=== PATIENT | female | born 1975 | race Caucasian/White ===

== ENCOUNTER 2022-01-08 14:25 | Outpatient (CLI) | payer BC | END 2022-01-08 14:26 | disposition home or self-care (01) | LOC: CSHULT 14:25 | PROVIDERS: ATTEND Nurse Practitioner Family | DX: N92.0 Excessive and frequent menstruation with regular cycle (principal); E66.9 Obesity, unspecified; N63.20 Unspecified lump in the left breast, unspecified quadrant; N85.2 Hypertrophy of uterus | CPT/HCPCS: 76856 ==

== ENCOUNTER 2022-02-25 13:39 | Emergency (ER) | payer BC, SELFPAY | END 2022-02-25 17:20 | disposition home or self-care (01) | LOC: CSHERS 13:39 | DX: R25.2 Cramp and spasm (principal) ==

== ENCOUNTER 2022-06-07 10:47 | Emergency (ER) | payer BC, SELFPAY ==
[2022-06-07] MEDS ORDERED: Ibuprofen 200 MG TAB ONE (11:31)
== END 2022-06-07 12:52 | disposition home or self-care (01) ==
LOC: CSHERS 10:47
DX: S60.222A Contusion of left hand, initial encounter (principal); W18.09XA Striking against other object with subsequent fall, initial encounter

== ENCOUNTER 2022-07-10 13:35 | Emergency (ER) | payer BC ==
[2022-07-10 14:22] LABS: #Eosinphils 0.2 10x3/uL (0.0-0.5); #Monocytes 0.3 10x3/uL (0.0-1.1); #Neutrophils 5.2 10x3/uL (1.5-8.4); %Basophils 0.5 % (0.0-2.0); %Eosinophils 2.6 % (0.0-6.0); %Lymphocytes 21.2 % (18.0-47.0); %Monocytes 4.4 % (0.0-10.0); Hemoglobin 12.9 g/dL (12.0-15.5); Mean Corpuscular HGB CONC 34.7 g/dL (32.0-36.0); Mean Corpuscular Hemoglobin 29.8 pg (27.0-33.0); Mean Corpuscular Volume 85.9 fl (81.6-98.3); Mean Platelet Volume 9.2 fl (7.4-10.4); Platelet Count 342 10x3/uL (150-450); RBC Distribution Width 12.2 % (11.5-14.5); Red Blood Cell (RBC) Count 4.33 10x6/uL (3.90-5.03); White Blood Cell (WBC) Count 7.3 10x3/uL (3.5-10.5)
[2022-07-10] MEDS ORDERED: Iopamidol 300 61% 100 ML VIAL FS ONE (14:22)
[2022-07-10 14:28] LABS: BHCG - Serum Negative (NEGATIVE); Pregs Control Background? CLEAR/WHITE (CLR/WHITE); Pregs Control Bar Appear? YES (CONTROL BAR)
[2022-07-10 14:34] LABS: ALT (SGPT) 15 U/L (8-55); AST (SGOT) 20 U/L (5-34); Albumin 4.2 g/dL (3.5-5.0); Alkaline Phosphatase 53 U/L (40-110); Anion Gap 12 mmol/L (10-20); BUN (Urea Nitrogen) 16 mg/dL (7.0-18.7); Bilirubin, Total 0.5 mg/dL (0.2-1.2); Calc. Creatinine Clearance 0 mL/min (70-130); Calcium 9.5 mg/dL (7.8-10.44); Carbon Dioxide 24 mmol/L (22-29); Chloride 106 mmol/L (98-107); Estimated GFR 67; Globulin 2.9 g/dL (2.4-3.5); Glucose 99 mg/dL (70-105); Lipase 41 U/L (8-78); Potassium 3.9 mmol/L (3.5-5.1); Protein, Total 7.1 g/dL (6.0-8.3); Sodium 138 mmol/L (136-145)
[2022-07-10] MEDS ORDERED: Ketorolac Tromethamine 30 MG/ML VIAL ONE (15:04)
[2022-07-10 15:32] LABS: Bilirubin Neg (Negative); Blood, Urine 150 (Negative); Clarity Clear (Clear); Glucose, Urine (Dipstick) Normal (Negative); Ketone, Urine Negative (Negative); Leukocyte Negative (Negative); Nitrite Negative (Negative); Protein, Urine (Dipstick) Negative (Neg-Trace); Urobilinogen Normal mg/dL (Less than 2)
[2022-07-10 15:41] LABS: Bacteria/HPF None Seen HPF (None Seen); Mucous/LPF Rare LPF (<2+); Squamous Epithelial 0-3 HPF (0-3); WBC/HPF 0-3 HPF (0-3)
== END 2022-07-10 17:42 | disposition home or self-care (01) ==
LOC: CSHERS 13:35
DX: R10.31 Right lower quadrant pain (principal); J45.909 Unspecified asthma, uncomplicated
CPT/HCPCS: 74177; 76856; 80053; 81003; 81015; 83690; 84703; 85025; 93976; 96374; J1885; Q9967

== ENCOUNTER 2023-05-26 18:01 | Emergency (ER) | payer BC | END 2023-05-26 21:05 | disposition home or self-care (01) | LOC: CSHERS 18:01 | DX: S63.91XA Sprain of unspecified part of right wrist and hand, initial encounter (principal); S00.03XA Contusion of scalp, initial encounter; J45.909 Unspecified asthma, uncomplicated; W19.XXXA Unspecified fall, initial encounter | CPT/HCPCS: 70450 ==

== ENCOUNTER 2023-08-07 19:08 | Emergency (ER) | payer BC ==
[2023-08-07] MEDS ORDERED: predniSONE 20 MG TAB ONE (19:59)
[2023-08-07] MEDS ORDERED: LevoFLOXacin 750 MG TAB ONE (19:59)
[2023-08-07 20:18] LABS: SARS-CoV-2 NAA Rapid Test Not Detected (NotDetected)
== END 2023-08-07 20:06 | disposition home or self-care (01) ==
LOC: CSHERS 19:08
DX: J21.0 Acute bronchiolitis due to respiratory syncytial virus (principal); Z20.822 Contact with and (suspected) exposure to COVID-19
CPT/HCPCS: 93005; 93010; 99283; J7512

== ENCOUNTER 2023-08-10 12:49 | Emergency (ER) | payer BC ==
[2023-08-10] MEDS ORDERED: HYDROcodone/Acetaminophen 5/325 mg Tablet ONE (14:04)
== END 2023-08-10 14:26 | disposition home or self-care (01) ==
LOC: CSHERS 12:49
DX: S40.012A Contusion of left shoulder, initial encounter (principal); J45.909 Unspecified asthma, uncomplicated; Z79.899 Other long term (current) drug therapy; W18.39XA Other fall on same level, initial encounter

== ENCOUNTER 2023-08-17 16:33 | Outpatient (CLI) | payer BC | END 2023-08-17 16:34 | disposition home or self-care (01) | LOC: CSHLAB 16:33 | PROVIDERS: ATTEND Student in an Organized Health Care Education/Training Program | DX: Z01.812 Encounter for preprocedural laboratory examination (principal); N92.1 Excessive and frequent menstruation with irregular cycle | CPT/HCPCS: 84703; 85027; 86850; 86900; 86901 ==

== ENCOUNTER 2023-08-19 05:38 | Day surgery (SDC) | payer BC ==
[2023-08-17 17:52] LABS: Hematocrit 41.7 % (34.9-44.5); Hemoglobin 13.8 g/dL (12.0-15.5); Mean Corpuscular HGB CONC 33.1 g/dL (32.0-36.0); Mean Corpuscular Volume 84.8 fl (81.6-98.3); Platelet Count 332 10x3/uL (150-450); RBC Distribution Width 14.1 % (11.5-14.5); Red Blood Cell (RBC) Count 4.92 10x6/uL (3.90-5.03); White Blood Cell (WBC) Count 9.7 10x3/uL (3.5-10.5)
[2023-08-17 18:02] LABS: BHCG - Serum Negative (NEGATIVE); Pregs Control Background? CLEAR/WHITE (CLR/WHITE); Pregs Control Bar Appear? YES (CONTROL BAR)
[2023-08-19] MEDS ORDERED: EPINEPHrine 1 MG/ML VIAL ONE (06:24)
[2023-08-19] MEDS ORDERED: Bupivacaine PF 0.5% 30 ML VIAL ONE (06:25)
[2023-08-19] MEDS ORDERED: Gabapentin 300 MG CAP ONE (06:27)
[2023-08-19] MEDS ORDERED: CeleCOXIB 100 MG CAP ONE (06:27)
[2023-08-19] MEDS ORDERED: Famotidine/PF 20 mg/2ml Vial ONE (06:28)
[2023-08-19] MEDS ORDERED: Rocuronium Bromide 10 MG/ML (10ML VIAL) ONE (06:36)
[2023-08-19] MEDS ORDERED: Ondansetron PF 4 MG/2 ML Vial ONE ×2 (06:36→11:28)
[2023-08-19] MEDS ORDERED: Lidocaine 1% PF 5 ML VIAL ONE (06:36)
[2023-08-19] MEDS ORDERED: PROPOFOL 20 ML ONE ×2 (06:36→08:02)
[2023-08-19] MEDS ORDERED: Dexamethasone 20 MG/5 ML VIAL ONE (06:36)
[2023-08-19] MEDS ORDERED: Midazolam HCl 2 mg/2 ml Vial ONE (06:37)
[2023-08-19] MEDS ORDERED: Fentanyl 250 MCG/5 ML VIAL ONE (06:37)
[2023-08-19] MEDS ORDERED: Sevoflurane 250 ML INH ANEST BOTTLE ONE (06:41)
[2023-08-19] MEDS ORDERED: Scopolamine 1 mg/72 hour Patch ONE (06:54)
[2023-08-19] MEDS ORDERED: CEFAZOLIN 2 GM VIAL ONE (07:19)
[2023-08-19] MEDS ORDERED: PHENYLEPHRINE-NS 100 MCG/ML 10 ML SYRINGE ONE (07:44)
[2023-08-19] MEDS ORDERED: HYDROcodone/Acetaminophen 5/325 mg Tablet ONE (10:59)
== END 2023-08-19 13:15 | disposition home or self-care (01) ==
LOC: CSHSDC 05:38
PROVIDERS: ATTEND Student in an Organized Health Care Education/Training Program
PROC: 0UT94ZZ Resection of Uterus, Percutaneous Endoscopic Approach (ICD-10-PCS; principal; 2023-08-19)
PROC: 0UT74ZZ Resection of Bilateral Fallopian Tubes, Percutaneous Endoscopic Approach (ICD-10-PCS; principal; 2023-08-19)
DX: D25.9 Leiomyoma of uterus, unspecified (principal); N80.03 Adenomyosis of the uterus; N83.8 Other noninflammatory disorders of ovary, fallopian tube and broad ligament; F41.9 Anxiety disorder, unspecified; J45.909 Unspecified asthma, uncomplicated; Z87.891 Personal history of nicotine dependence; Z87.59 Personal history of other complications of pregnancy, childbirth and the puerperium; Z90.49 Acquired absence of other specified parts of digestive tract; Z98.51 Tubal ligation status; Z98.890 Other specified postprocedural states; Z88.0 Allergy status to penicillin; Z88.8 Allergy status to other drugs, medicaments and biological substances; Z79.899 Other long term (current) drug therapy
CPT/HCPCS: 84703; 85027; 86850; 86900; 86901; 88307; C1889; J0171; J1100; J2250; J2405; J2704; J3010; S0020; S0028

== ENCOUNTER 2024-09-04 18:51 | Emergency (ER) | payer BC | END 2024-09-04 20:22 | disposition home or self-care (01) | LOC: CSHERS 18:51 | DX: S89.91XA Unspecified injury of right lower leg, initial encounter (principal); J45.909 Unspecified asthma, uncomplicated | CPT/HCPCS: 99283 ==

== ENCOUNTER 2024-10-05 19:53 | Emergency (ER) | payer BC, OTHER, SELFPAY ==
[2024-10-05] MEDS ORDERED: Ondansetron PF 4 MG/2 ML Vial ONE (21:47)
[2024-10-05] MEDS ORDERED: Ketorolac Tromethamine 30 MG (1 mL) VIAL ONE (21:48)
[2024-10-05] MEDS ORDERED: Dexamethasone 10 MG/ML VIAL ONE (21:48)
== END 2024-10-06 00:13 | disposition home or self-care (01) ==
LOC: CSHERS 19:53
DX: J10.1 Influenza due to other identified influenza virus with other respiratory manifestations (principal)
CPT/HCPCS: 71045; 87428; 93005; 96361; 96374; 96375; J1100; J1885; J2405